=== PATIENT | female | born 1980 | race Caucasian/White ===

== ENCOUNTER → 2023-08-10 10:37 | Outpatient (CLI) | payer BC, SELFPAY ==
[2023-08-10 12:13] LABS: COVID-19 CEPHEID 4-PLEX PCR Negative (Negative); Influenza A - CEPHEID Flu A NEGATIVE (NEGATIVE); Influenza B - CEPHEID Flu B NEGATIVE (NEGATIVE); Respiratory Syncytial Virus Negative (Negative)
== END ==
PROVIDERS: Visit Provider Physician Assistant Surgical
DX: R50.9 Fever, unspecified (principal)
CPT/HCPCS: 0241U